=== PATIENT | male | born 1975 | race Caucasian/White ===

== ENCOUNTER 2020-11-28 14:11 | Inpatient (IN) | payer OTHER ==
[~2020-11-28] VITALS: Ht 167.6 cm; Wt 83.6 kg
[~2020-11-28 14:11] MED LIST: BENADRYL 50MG C50 MG PO; BENADRYL25 MG PO; MEDROL DOSEPAK 24 MG PO
[2020-11-28 15:27] LABS: HEMOGLOBIN 13.6 gm/dl (14.0-17.5); RED BLOOD COUNT 4.33 M/UL (4.20-5.50); WHITE BLOOD COUNT 11.6 K/UL (4.5-11.0)
[2020-11-28 16:13] LABS: BUN/CREATININE RATIO 11 (0-10)
[2020-11-29 03:21] LABS: BUN/CREATININE RATIO 14 (0-10)
[2020-11-29 05:35] LABS: HEMOGLOBIN 11.7 gm/dl (14.0-17.5); WHITE BLOOD COUNT 9.4 K/UL (4.5-11.0)
[2020-11-29 05:36] LABS: RED BLOOD COUNT 3.76 M/UL (4.20-5.50)
[2020-11-30 00:58] LABS: ACINETOBACTER BAUMANNII Not Detected (Negative); CANDIDA ALBICANS Not Detected (Negative); CANDIDA KRUSEI Not Detected (Negative); CANDIDA TROPICALIS Not Detected (Negative); ENTEROCOCCUS Not Detected (Negative); ESCHERICHIA COLI Not Detected (Negative); HAEMOPHILUS INFLUENZAE Not Detected (Negative); KLEBSIELLA OXYTOCA Not Detected (Negative); KLEBSIELLA PNEUMONIAE Not Detected (Negative); KPC-CARBAPENEM-RESISTANCE GENE Not Detected (Negative); PROTEUS Not Detected (Negative); PSEUDOMONAS AERUGINOSA Not Detected (Negative); SERRATIA MARCESANS Not Detected (Negative); STREP AGALACTIAE (GROUP B) Not Detected (Negative); STREP PYOGENES (GROUP A) Not Detected (Negative); STREPTOCOCCUS Not Detected (Negative); vanA/B (VANCOMYCIN RESIST GENE Not Detected (Negative)
[2020-11-30 02:59] LABS: STAPHYLOCOCCUS DETECTED (Negative); STAPHYLOCOCCUS AUREUS DETECTED (Negative); mecA (METHICILLIN RESIST GENE DETECTED (Negative)
[2020-11-30 06:16] LABS: HEMOGLOBIN 13.3 gm/dl (14.0-17.5); RED BLOOD COUNT 4.21 M/UL (4.20-5.50); WHITE BLOOD COUNT 6.5 K/UL (4.5-11.0)
[2020-11-30 06:34] LABS: BUN/CREATININE RATIO 11 (0-10)
[2020-11-30 07:25] LABS: BORDETELLA PARAPERTUSSIS Not Detected (Not Detectd); BORDETELLA PERTUSSIS Not Detected (Not Detectd); CHLAMYDIA PNEUMONIAE Not Detected (Not Detectd); CORONAVIRUS HKU1 Not Detected (Not Detectd); CORONAVIRUS NL63 Not Detected (Not Detectd); CORONAVIRUS OC43 Not Detected (Not Detectd); CORONOAVIRUS 229E Not Detected (Not Detectd); HUMAN METAPNEUMOVIRUS Not Detected (Not Detectd); HUMAN RHINOVIRUS/ENTEROVIRUS Not Detected (Not Detectd); INFLUENZA A Not Detected (Not Detectd); INFLUENZA B Not Detected (Not Detectd); MYCOPLASMA PNEUMONIAE Not Detected (Not Detectd); PARAINFLUENZA VIRUS 1 Not Detected (Not Detectd); PARAINFLUENZA VIRUS 2 Not Detected (Not Detectd); PARAINFLUENZA VIRUS 3 Not Detected (Not Detectd); PARAINFLUENZA VIRUS 4 Not Detected (Not Detectd); RESPIRATORY SYNCYTIAL VIRUS Not Detected (Not Detectd)
[2020-11-30 09:31] LABS: SARS-CoV-2 NOT DETECTED (Not Detectd)
[2020-12-01 05:33] LABS: HEMOGLOBIN 13.4 gm/dl (14.0-17.5); RED BLOOD COUNT 4.54 M/UL (4.20-5.50); WHITE BLOOD COUNT 5.6 K/UL (4.5-11.0)
[2020-12-01 05:58] LABS: BUN/CREATININE RATIO 11 (0-10)
[2020-12-02 02:55] LABS: HEMOGLOBIN 13.7 gm/dl (14.0-17.5); RED BLOOD COUNT 4.41 M/UL (4.20-5.50)
[2020-12-02 03:09] LABS: BUN/CREATININE RATIO 8 (0-10)
--- NOTE | 2020-12-02 12:05 | NUR ---
PT LEFT ROOM WHILE NURSE WAS IN WITH ANOTHER PATIENT. PT UNHOOKED IV AND LEADS. CALLED PT EMERGENCY CONTACT (MOTHER). STATED SHE HAD NOT TALKED TO HIM. ASK HER IF SHE WOULD CALL HOSPITAL IF HE RETURNS HOME OR SHE TALKS TO HIM. MOTHER STATED HE DID NOT HAVE A CELL PHONE THAT SHE WAS AWARE OF. HOSPITAL GROUNDS WERE SEARCHED AND NOTIFIED.
== END 2020-12-02 12:08 | disposition left against medical advice (07) | DRG 178 ==
LOC: ER1 14:11 → PROG CARE 18:54 → CDU 18:54 → PROG CARE 21:42
PROVIDERS: Preventive Medicine Occupational Medicine; ADMIT Internal Medicine
DX: J15.212 Pneumonia due to Methicillin resistant Staphylococcus aureus (principal); I76 Septic arterial embolism; E87.1 Hypo-osmolality and hyponatremia; B95.62 Methicillin resistant Staphylococcus aureus infection as the cause of diseases classified elsewhere; F17.210 Nicotine dependence, cigarettes, uncomplicated; E86.0 Dehydration; Z20.822 Contact with and (suspected) exposure to COVID-19; Z83.3 Family history of diabetes mellitus; R07.89 Other chest pain; F11.10 Opioid abuse, uncomplicated
CPT/HCPCS: ECHO; 0240U; 36415; 36600; 71045; 71046; 80048; 80053; 80202; 80307; 81001; 82550; 82553; 82803; 83605; 83690; 83874; 83880; 84484; 85025; 85027; 85652; 86140; 87040; 87077; 87086; 87150; 87186; 87633; 93005; 93306; 94640; 94760; 99285; G0480; J1650; J1885; J2543; J3370; J7030; J7070; Q9967